=== PATIENT | male | born 1930 | race Caucasian/White ===

== ENCOUNTER 2016-07-11 08:25 | Outpatient (CLI) | payer MEDICARE ==
[2016-07-11 08:47] LABS: #Basophils 0.1 thou/uL (0.0-0.2); #Eosinphils 0.5 thou/uL (0.0-0.7); #Lymphocytes 1.6 thou/uL (1.20-3.40); #Monocytes 0.7 thou/uL (0.11-0.59); #Neutrophils 4.9 thou/uL (1.40-6.50); %Eosinophils 6.1 % (0.0-10.0); %Lymphocytes 20.5 % (21.0-51.0); %Monocytes 8.9 % (0.0-10.0); %Neutrophils 63.5 % (42.0-75.0); Hemoglobin 11.2 g/dL (14.0-18.0); Mean Corpuscular Hemoglobin 28.7 pg (27.0-31.0); Mean Corpuscular Volume 86.8 fl (80.0-94.0); Mean Platelet Volume 8.9 fL (7.4-10.4); Platelet Count 278 thou/uL (130-400); RBC Distribution Width 12.1 % (11.5-14.5); Red Blood Cell (RBC) Count 3.91 mill/uL (4.70-6.10); White Blood Cell (WBC) Count 7.6 thou/uL (4.8-10.8)
[2016-07-11 09:22] LABS: ALT (SGPT) 15 U/L (0-55); AST (SGOT) 19 U/L (5-34); Albumin 3.8 g/dL (3.4-4.8); Alkaline Phosphatase 117 U/L (40-150); Anion Gap 15 mmol/L (10-20); BUN (Urea Nitrogen) 9 mg/dL (8.4-25.7); Bilirubin, Total 0.8 mg/dL (0.2-1.2); Calc. Creatinine Clearance 0 mL/min (70-130); Calcium 9.6 mg/dL (7.8-10.44); Carbon Dioxide 28 mmol/L (23-31); Cardiac Risk 2.3 (Less than 4.5); Chloride 105 mmol/L (98-107); Cholesterol 117 mg/dL (< 200 Desired); Estimated GFR-MDRD Greater than 90; Globulin 2.4 g/dL (2.4-3.5); Glucose 99 mg/dL (83-110); HDL Cholesterol 52 mg/dL (>60 Neg Risk); LDL Cholesterol, Calculated 53 mg/dL; Potassium 3.9 mmol/L (3.5-5.1); Protein, Total 6.2 g/dL (5.8-8.1); Sodium 144 mmol/L (136-145); Triglycerides 59 mg/dL (Less than 150)
== END 2016-07-11 08:26 ==
LOC: MADLABBHPM 08:25
PROVIDERS: ATTEND Family Medicine
DX: I10 Essential (primary) hypertension (principal)
CPT/HCPCS: 36415; 80053; 80061; 85025

== ENCOUNTER 2017-08-24 23:36 | Emergency (ER) | payer MEDICARE ==
[2017-08-25] MEDS ORDERED: cefTRIAXone\\ROCEPHIN 1 GM VIAL ONE (00:14)
[2017-08-25] MEDS ORDERED: Benzonatate 100 MG CAP ONE (00:14)
[2017-08-25] MEDS ORDERED: Lidocaine 1% 20 ML MDV ONE (00:14)
== END 2017-08-25 00:36 | disposition home or self-care (01) ==
LOC: MADERS 23:36
DX: J02.9 Acute pharyngitis, unspecified (principal); E78.5 Hyperlipidemia, unspecified; I25.10 Atherosclerotic heart disease of native coronary artery without angina pectoris; I10 Essential (primary) hypertension; I25.2 Old myocardial infarction; Z79.82 Long term (current) use of aspirin; Z79.02 Long term (current) use of antithrombotics/antiplatelets; Z79.899 Other long term (current) drug therapy
CPT/HCPCS: 96372; J0696; J1040; J2001

== ENCOUNTER 2018-03-30 05:18 | Emergency (ER) | payer MEDICARE ==
[2018-03-30] MEDS ORDERED: Benzonatate 100 MG CAP ONE (05:49)
[2018-03-30] MEDS ORDERED: Dexamethasone 4 MG TAB ONE (05:49)
[2018-03-30] MEDS ORDERED: AMOXicillin 250 MG CAP ONE (05:49)
== END 2018-03-30 05:59 | disposition home or self-care (01) ==
LOC: MADERS 05:18
DX: J06.9 Acute upper respiratory infection, unspecified (principal); E78.5 Hyperlipidemia, unspecified; I25.10 Atherosclerotic heart disease of native coronary artery without angina pectoris; I10 Essential (primary) hypertension; I25.2 Old myocardial infarction; Z79.899 Other long term (current) drug therapy; Z79.82 Long term (current) use of aspirin
CPT/HCPCS: 99283; J8540

== ENCOUNTER 2019-05-01 14:03 | Outpatient (CLI) | payer MEDICARE ==
--- NOTE | 2019-05-01 14:23 | RAD ---
XR Hand Rt 3 View STANDARD HISTORY: Right hand second digit pain, locking up FINDINGS: No fracture or dislocation is identified. Degenerative changes are present.
== END 2019-05-01 14:04 | disposition home or self-care (01) ==
LOC: MADRAD 14:03
PROVIDERS: ATTEND Family Medicine
DX: M65.321 Trigger finger, right index finger (principal)

== ENCOUNTER 2020-09-08 08:09 | Emergency (ER) | payer MEDICARE ==
[2020-09-08 23:25] LABS: SARS-CoV-2 PCR by NAA Not Detected (NotDetected)
== END 2020-09-08 09:08 | disposition home or self-care (01) ==
LOC: MADERS 08:09
DX: J00 Acute nasopharyngitis [common cold] (principal); Z20.822 Contact with and (suspected) exposure to COVID-19; E78.5 Hyperlipidemia, unspecified; I25.10 Atherosclerotic heart disease of native coronary artery without angina pectoris; I10 Essential (primary) hypertension; I25.2 Old myocardial infarction; Z87.891 Personal history of nicotine dependence
CPT/HCPCS: 71045; 93005; U0003; U0005; 87635

== ENCOUNTER 2021-02-16 17:31 | Outpatient (CLI) | payer MEDICARE ==
[2021-02-17 08:11] LABS: SARS-CoV-2 PCR by NAA Not Detected (NotDetected)
== END 2021-02-16 17:32 | disposition home or self-care (01) ==
LOC: MADLAB 17:31
PROVIDERS: ATTEND Family Medicine
DX: J20.9 Acute bronchitis, unspecified (principal); Z20.822 Contact with and (suspected) exposure to COVID-19
CPT/HCPCS: U0003; U0005

== ENCOUNTER 2021-02-21 08:42 | Outpatient (CLI) | payer MEDICARE | END 2021-02-21 08:43 | disposition home or self-care (01) | LOC: MADRAD 08:42 | PROVIDERS: ATTEND Family Medicine | DX: J20.9 Acute bronchitis, unspecified (principal) | CPT/HCPCS: 71046 ==